=== PATIENT | male | born 1975 | race Caucasian/White ===

== ENCOUNTER 2016-12-09 21:44 | Emergency (ER) | payer BC ==
[~2016-12-09] VITALS: Ht 193 cm; Wt 91.9 kg
[~2016-12-09 21:44] MED LIST: NASONEX SPRAY17 GM; PROAIR HFA0.09 MG/AC IH; ZYRTEC 10MG10 MG PO
[2016-12-09 21:50] VITALS: TEMP 98.2
[2016-12-09] MEDS ORDERED: AMOXICILLIN 8751 TAB PO (22:19)
[2016-12-09 23:29] VITALS: BP 119/77; PULSE 90
== END 2016-12-09 23:29 | disposition home or self-care (01) ==
LOC: COL.ER 21:44
DX: S61.452A Open bite of left hand, initial encounter (principal); Z23 Encounter for immunization; W55.01XA Bitten by cat, initial encounter; Y92.410 Unspecified street and highway as the place of occurrence of the external cause

== ENCOUNTER 2016-12-12 19:53 | Outpatient (RCR) | payer BC ==
[~2016-12-12] VITALS: Ht 193 cm; Wt 88.6 kg
[~2016-12-12 19:53] MED LIST changes: +AMOXICILLIN 8751 TAB PO
[2016-12-23 12:24] VITALS: BP 121/83; PULSE 81; TEMP 98.1
== END 2017-03-12 ==
LOC: COL.ER
DX: Z20.3 Contact with and (suspected) exposure to rabies (principal); Z23 Encounter for immunization

== ENCOUNTER → 2017-01-12 | Outpatient (CLI) | payer BC | LOC: COL.RAD 12:29 | DX: E06.9 Thyroiditis, unspecified (principal) ==

== ENCOUNTER → 2017-04-16 | Outpatient (CLI) | payer BC | LOC: COL.RAD 08:47 | DX: K21.9 Gastro-esophageal reflux disease without esophagitis (principal); Q38.7 Congenital pharyngeal pouch ==

== ENCOUNTER 2019-04-15 09:36 | Day surgery (SDC) | payer BC ==
[~2019-04-15] VITALS: Ht 193 cm; Wt 93.8 kg
[2019-04-15 10:35] VITALS: BP 122/82; PULSE 81; TEMP 98.4
[2019-04-15] MEDS ORDERED: AFRIN 15 ML15 ML NS (11:39)
[2019-04-15 13:00] VITALS: BP 112/75; PULSE 73; TEMP 97.3
--- NOTE | 2019-04-15 13:00 | NUR ---
Pt to [facility] [facility] via cart from PACU. Pt awake and alert. Denies pain or nausea. VSS. Pt up to restroom with stand by assist once vital signs were taken. Pt voids without difficulties. Pt back to bed. Water provided per pt request. Warm blankets place on pt. Will continue to monitor. Call light within reach.
[2019-04-15 13:15] VITALS: BP 110/74; PULSE 81
--- NOTE | 2019-04-15 13:15 | NUR ---
Pt continues to rest. Denies needs. Call light within reach.
[2019-04-15 13:30] VITALS: BP 109/73; PULSE 70
--- NOTE | 2019-04-15 13:30 | NUR ---
Pt continues to rest. Pudding given per pt request. Denies pain or nausea. Call light within reach.
[2019-04-15 13:45] VITALS: BP 109/76; PULSE 65
--- NOTE | 2019-04-15 13:45 | NUR ---
Pt continues to rest. Up to restroom with stand by assist x1. Voids without difficulties. Pt back to room. Call light within reach.
[2019-04-15 14:00] VITALS: BP 116/75; PULSE 71
--- NOTE | 2019-04-15 14:00 | NUR ---
Pt resting. Denies needs. Call light within reach.
--- NOTE | 2019-04-15 14:15 | NUR ---
Discharge instructions reviewed. Pt voices understanding. IV site discontinued with all parts intact. Pt up to dress. Call light within reach.
--- NOTE | 2019-04-15 14:30 | NUR ---
Pt escorted to private car via wheel chair. Pt accompanied home by his .
== END 2019-04-15 14:30 | disposition home or self-care (01) ==
LOC: SDCO 09:36
DX: R35.0 Frequency of micturition (principal); R39.15 Urgency of urination; R33.9 Retention of urine, unspecified; Z88.1 Allergy status to other antibiotic agents
CPT/HCPCS: J0690; J1100; J1885; J2405; J2704; J3010; J7120; Q9967

== ENCOUNTER → 2021-05-16 | Outpatient (CLI) | payer BC ==
[~2021-05-16] MED LIST changes: +AFRIN 15 ML15 ML NS
== END ==
LOC: COL.RAD 10:47
DX: J34.89 Other specified disorders of nose and nasal sinuses (principal); R20.2 Paresthesia of skin; R41.89 Other symptoms and signs involving cognitive functions and awareness

== ENCOUNTER 2022-04-08 23:22 | Emergency (ER) | payer BC ==
[~2022-04-08] VITALS: Ht 193 cm; Wt 95.9 kg
[2022-04-08 23:28] VITALS: TEMP 98.2
[2022-04-09 00:08] LABS: COLLECTION METHOD CLEAN CATCH
[2022-04-09 00:15] LABS: BASO % 0.4 % (0.0-2.0); EOS # 0.1 K/mm3 (0.0-0.7); EOS % 1.5 % (0.0-4.0); GRAN # 4.2 K/mm3 (1.4-6.5); GRAN % 48.8 % (42.2-75.2); HEMATOCRIT 44.2 % (42.0-52.0); HEMOGLOBIN 15.1 g/dl (13.5-18.0); LYMPH # 3.2 K/mm3 (1.2-3.4); LYMPH % 37.6 % (20.0-51.0); MEAN CELL VOLUME 94 fl (80.0-100.0); MEAN CORPUSCULAR HEMOGLOBIN 32 pg (27-31); MEAN CORPUSCULAR HGB CONC 34 g/dl (33.0-37.0); MEAN PLATELET VOLUME 9.2 fl (7.4-10.4); MONO % 11.3 % (1.7-9.3); PLATELET COUNT 230 K/mm3 (130-400); RED BLOOD COUNT 4.69 M/mm3 (4.20-5.60); REDCELL DISTRIBUTION WIDTH-CV 12.6 % (11.5-14.5)
[2022-04-09 00:25] LABS: URINE APPEARANCE Clear (CLEAR/HAZY); URINE BLOOD 2+ (NEGATIVE); URINE COLOR Yellow (YELLOW); URINE GLUCOSE Negative (NEGATIVE); URINE KETONE Negative (NEGATIVE); URINE NITRATE Negative (NEGATIVE); URINE PROTEIN(semi-quant) Negative (NEGATIVE); URINE UROBILINOGEN 0.2 E.U/dL (0.2-1.0)
[2022-04-09 00:32] LABS: ALBUMIN 3.6 gm/dL (3.5-5.0); BILIRUBIN,TOTAL 0.4 mg/dL (0.2-1.2); CALCIUM 9.1 mg/dL (8.4-10.2); CREATININE, serum 0.85 mg/dL (0.72-1.25); POTASSIUM 3.7 mmol/L (3.5-4.5); TOTAL PROTEIN 6.9 gm/dL (6.2-8.1)
[2022-04-09 00:32] LABS: SQUAMOUS EPITHELIAL 0-2 /hpf (0-10); URINE BACTERIA Rare /hpf (NONE SEEN); URINE RBC 20-50 /hpf (0-2)
[2022-04-09] MEDS ORDERED: NORCO 325 MG-51 TAB PO (01:48)
[2022-04-09 02:03] VITALS: BP 150/90; PULSE 86
== END 2022-04-09 02:03 | disposition home or self-care (01) ==
LOC: COL.ER 23:22
PROVIDERS: Physician Assistant
DX: N13.2 Hydronephrosis with renal and ureteral calculous obstruction (principal)
CPT/HCPCS: J1885; J7030; Q9967